=== PATIENT | female | born 1955 | race Asian ===

== ENCOUNTER 2017-07-16 11:57 | Emergency (ER) | payer OTHER ==
[2017-07-16 12:34] LABS: POC GLUCOSE 85 mg/dL (70-99)
[2017-07-16] MEDS: amLODIPine BESYLATE 5 MG TABLET PO (14:09)
[2017-07-16] MEDS: cloNIDine HCL 0.1 MG TABLET PO (15:25)
== END 2017-07-16 15:47 | disposition home or self-care (01) ==
LOC: ER 11:57
DX: S09.90XA Unspecified injury of head, initial encounter (principal); E78.00 Pure hypercholesterolemia, unspecified; E03.9 Hypothyroidism, unspecified; G89.29 Other chronic pain; I11.0 Hypertensive heart disease with heart failure; I50.9 Heart failure, unspecified; I25.10 Atherosclerotic heart disease of native coronary artery without angina pectoris; E11.9 Type 2 diabetes mellitus without complications; J44.9 Chronic obstructive pulmonary disease, unspecified; Z86.73 Personal history of transient ischemic attack (TIA), and cerebral infarction without residual deficits; W18.39XA Other fall on same level, initial encounter; Y93.89 Activity, other specified; Y99.8 Other external cause status; Y92.89 Other specified places as the place of occurrence of the external cause
CPT/HCPCS: 70450; 72125; 82962; 99284-25

== ENCOUNTER → 2017-10-13 | Outpatient (CLI) | payer OTHER ==
[~2017-10-13] MED LIST: LIDOCAINE 1% Multi-Dose 50 ML VIAL. INJ
== END | disposition home or self-care (01) ==
LOC: US 14:55
DX: E07.89 Other specified disorders of thyroid (principal); I11.0 Hypertensive heart disease with heart failure; I50.9 Heart failure, unspecified; E11.9 Type 2 diabetes mellitus without complications; E78.00 Pure hypercholesterolemia, unspecified; J44.9 Chronic obstructive pulmonary disease, unspecified; E03.9 Hypothyroidism, unspecified; I25.10 Atherosclerotic heart disease of native coronary artery without angina pectoris
CPT/HCPCS: 76942; 88173; 88305

== ENCOUNTER 2018-04-10 12:08 | Emergency (ER) | payer MEDICAID, OTHER ==
[~2018-04-10] VITALS: Ht 152.4 cm; Wt 63.5 kg
[2018-04-10 12:08] VITALS: BP 207/87
[~2018-04-10 12:08] MED LIST changes: +ACET325T9 PO; -LIDOCAINE 1% Multi-Dose 50 ML VIAL. INJ
--- NOTE | 2018-04-10 13:18 | RAD ---
CT head without contrast and CT cervical spine without contrast dated 04/10/2018. There is a made to 07/16/2017. Clinical data indication: Head and neck pain after fall. TECHNIQUE: Per contiguous axial imaging the head performed from skull base to vertex. In addition, axial imaging the cervical spine acquired with thin cut coronal and sagittal reconstruction. One or more of the following individualized dose reduction techniques were utilized for this examination: 1. Automated exposure control 2. Adjustment of the mA and/or kV according to patient size 3. Use of iterative reconstruction technique FINDINGS: Ventricles and sulci are mildly prominent for age. No midline shift or mass effect. Zone of encephalization the right parietal-occipital region is unchanged consistent with remote infarct. There is mild to moderate patchy low density in the deep/subcortical periventricular white matter and central pollo, also similar to prior study. Small remote lacunar infarct of the left capps radiata. No hemorrhage or extra axial collection. Cerebellar volume loss, unchanged. Visualized paranasal sinuses and mastoid air cells are clear. No apparent calvarial abnormality. Images of the cervical spine were acquired from skull base to T2. Straightening of the normal cervical lordosis, otherwise sagittal alignment is anatomic. Vertebral body heights are maintained. No prevertebral soft tissue swelling. Posterior elements are intact. No evidence of fracture. Mild endplate hypertrophic changes throughout with multilevel uncovertebral spurring. There is moderate disc space narrowing at C3-C4 with multilevel mild facet arthropathy. There is resultant mild to moderate right foraminal stenosis at C3-C4 and C4-C5 Visualized soft tissue structures unremarkable. There is a calcified mass at the right thyroid gland, unchanged. Limited images of the lung apices are clear. IMPRESSION HEAD: 1. No evidence of acute intracranial hemorrhage or mass. 2. Moderate chronic small vessel ischemic changes and atrophy. There are remote infarcts of the right parietal occipital region and left capps radiata, unchanged. IMPRESSION CERVICAL SPINE: 1. No evidence of fracture or malalignment. 2. Mild multilevel spondylosis. 3. Indeterminate calcified mass at the right thyroid lobe, unchanged from prior exam. Electronically signed by: Finn Rosa MD (04/10/2018 1:14 PM) [facility] – [place]
--- NOTE | 2018-04-10 13:33 | PHYS DOC ---
Past Medical History Past Medical History: CAD, CHF, Constipation, COPD, CVA, Diabetes-Type II, High Cholesterol, Hypertension, Hypothyroid Additional Past Medical Histor: APHASIA, GASTRIC ULCERS,DERMATITIS,CHRONIC PAIN ,VITAMIN DEF, Past Surgical History: Coronary Bypass Surgery Alcohol Use: None Drug Use: None Adult General Chief Complaint Chief Complaint: MECHANICAL FALL HPI HPI Patient is a 62-year-old female who presents from group home with report of fall and hitting her head. Patient reportedly had no loss of consciousness. Patient has history of CVA and so has some aphasia. Additional history is limited due to patient's aphasia though she does not appear to be in any discomfort. Review of Systems Review of Systems Constitutional: Denies fever or chills [] Respiratory: Denies cough or shortness of breath [] Cardiovascular: No additional information not addressed in HPI [] GI: Denies vomiting or diarrhea [] Neurologic: Denies L status changes [] Unable to fully assess review of systems due to patient having expressive aphasia. Allergies Allergies Allergies Coded Allergies Type Severity Reaction Last Updated Verified No Known Drug Allergies 07/16/17 No Physical Exam Physical Exam Constitutional: Well developed, well nourished, no acute distress, non-toxic appearance. [] HENT: Normocephalic, atraumatic, bilateral external ears normal, oropharynx moist, no oral exudates, nose normal. [] Eyes: PERRLA, EOMI, conjunctiva normal, no discharge. [] Neck: Normal range of motion, no tenderness, supple, no stridor. [] Cardiovascular: Regular rate and rhythm [] Lungs & Thorax: Bilateral breath sounds clear to auscultation [] Abdomen: Bowel sounds normal, soft, no tenderness. [] Skin: Warm, dry, no erythema, no rash. [] Back: No spinous point tenderness. [] Extremities: No tenderness, no cyanosis, no clubbing. [] Neurologic: Awake and alert. Unable to fully assess neurological status due to prior stroke and expressive aphasia. [] Current Patient Data Vital Signs Vital Signs Date Time Temp Pulse Resp B/P (MAP) Pulse Ox O2 Delivery O2 Flow Rate FiO2 04/10/18 12:08 97.6 74 12 207/87 (127) 98 Room Air 97.6 EKG EKG [] Radiology/Procedures Radiology/Procedures [] Impressions: PROCEDURE: CT HEAD AND CERVICAL SPINE WO CT head without contrast and CT cervical spine without contrast dated 04/10/2018. There is a made to 07/16/2017. Clinical data indication: Head and neck pain after fall. TECHNIQUE: Per contiguous axial imaging the head performed from skull base to vertex. In addition, axial imaging the cervical spine acquired with thin cut coronal and sagittal reconstruction. One or more of the following individualized dose reduction techniques were utilized for this examination: 1. Automated exposure control 2. Adjustment of the mA and/or kV according to patient size 3. Use of iterative reconstruction technique FINDINGS: Ventricles and sulci are mildly prominent for age. No midline shift or mass effect. Zone of encephalization the right parietal-occipital region is unchanged consistent with remote infarct. There is mild to moderate patchy low density in the deep/subcortical periventricular white matter and central pollo, also similar to prior study. Small remote lacunar infarct of the left capps radiata. No hemorrhage or extra axial collection. Cerebellar volume loss, unchanged. Visualized paranasal sinuses and mastoid air cells are clear. No apparent calvarial abnormality. Images of the cervical spine were acquired from skull base to T2. Straightening of the normal cervical lordosis, otherwise sagittal alignment is anatomic. Vertebral body heights are maintained. No prevertebral soft tissue swelling. Posterior elements are intact. No evidence of fracture. Mild endplate hypertrophic changes throughout with multilevel uncovertebral spurring. There is moderate disc space narrowing at C3-C4 with multilevel mild facet arthropathy. There is resultant mild to moderate right foraminal stenosis at C3-C4 and C4-C5 Visualized soft tissue structures unremarkable. There is a calcified mass at the right thyroid gland, unchanged. Limited images of the lung apices are clear. IMPRESSION HEAD: 1. No evidence of acute intracranial hemorrhage or mass. 2. Moderate chronic small vessel ischemic changes and atrophy. There are remote infarcts of the right parietal occipital region and left capps radiata, unchanged. IMPRESSION CERVICAL SPINE: 1. No evidence of fracture or malalignment. 2. Mild multilevel spondylosis. 3. Indeterminate calcified mass at the right thyroid lobe, unchanged from prior exam. Electronically signed by: Finn Rosa MD (04/10/2018 1:14 PM) [facility] [place] DICTATED and SIGNED BY: FINN ROSA MD DATE: 04/10/18 1310 Course & Med Decision Making Course & Med Decision Making Pertinent Labs and Imaging studies reviewed. (See chart for details) [] Dragon Disclaimer Dragon Disclaimer This electronic medical record was generated, in whole or in part, using a voice recognition dictation system. Departure Departure Impression: Primary Impression: Closed head injury Additional Impression: Fall Disposition: 01 HOME, SELF-CARE Condition: STABLE Referrals: ANDREW DOLAN MD (PCP) Patient Instructions: Head Injury, Adult Problem Qualifiers Primary Impression: Closed head injury Encounter type: initial encounter Qualified Codes: S09.90XA - Unspecified injury of head, initial encounter Additional Impression: Fall Encounter type: initial encounter Qualified Codes: W19.XXXA - Unspecified fall, initial encounter AL ALBARADO Jr. DO Apr 10, 2018 13:33
== END 2018-04-10 15:53 | disposition home or self-care (01) ==
LOC: ER 12:08
DX: S09.90XA Unspecified injury of head, initial encounter (principal); M47.812 Spondylosis without myelopathy or radiculopathy, cervical region; J44.9 Chronic obstructive pulmonary disease, unspecified; I11.0 Hypertensive heart disease with heart failure; E78.00 Pure hypercholesterolemia, unspecified; I50.9 Heart failure, unspecified; E03.9 Hypothyroidism, unspecified; G89.29 Other chronic pain; Z86.73 Personal history of transient ischemic attack (TIA), and cerebral infarction without residual deficits; I25.10 Atherosclerotic heart disease of native coronary artery without angina pectoris; Z95.1 Presence of aortocoronary bypass graft; W18.09XA Striking against other object with subsequent fall, initial encounter; Y93.89 Activity, other specified; Y92.89 Other specified places as the place of occurrence of the external cause; Y99.8 Other external cause status
CPT/HCPCS: 70450; 72125; 99284-25

== ENCOUNTER 2019-08-19 18:31 | Emergency (ER) | payer MEDICAID, OTHER ==
[~2019-08-19] VITALS: Ht 149.9 cm; Wt 88.6 kg
--- NOTE | 2019-08-19 19:36 | RAD ---
CT HEAD AND CERVICAL SPINE WO Date: 08/19/2019 6:45 PM Clinical Indication: Reason: TRAUMA, pain Comparison: CT head 04/10/2018. Technique: 5 mm axial tomographic images were obtained of the head without contrast. These were viewed on brain and bone windows. Noncontrast CT of the cervical spine was performed. Sagittal and coronal reformats were performed and evaluated. One or more of the following dose reduction techniques were utilized: Automated exposure control (AEC), Adjustment of mA and/or kV according to patient size, Use of iterative reconstruction technique such as ASiR, CT scan done according to ALARA and image gently/image wisely HEAD FINDINGS: Mild generalized cerebral and cerebellar volume loss. Moderate nonspecific periventricular hypoattenuation, most commonly seen with chronic small vessel ischemic disease. Moderate area of right parieto-occipital encephalomalacia. Chronic left capps radiata lacunar infarct. No intra- or extra-axial mass or fluid collection. No acute hemorrhage. The ventricles are normal in size, shape, and morphology. The nelson-white matter junction is normal. The basilar cisterns are patent. The visualized paranasal sinuses are normal. The visualized portions of the orbits and globes are normal. The mastoid air cells are clear. No aggressive osseous lesion or fracture. CERVICAL SPINE FINDINGS: The cervical spine is normally aligned. No acute fracture. No aggressive lytic or blastic osseous lesions. Mild multilevel degenerative disc space height loss. Multilevel mild spinal canal stenosis secondary to disc protrusions and marginal osteophytes. Multilevel mild and moderate neuroforaminal narrowing secondary to uncovertebral arthrosis. Multilevel mild and moderate facet arthrosis. Large right thyroid nodule, better evaluated on prior thyroid ultrasound. No cervical lymphadenopathy. Bilateral carotid atherosclerosis. The visualized aerodigestive tract is normal. The visualized portions of the lungs are clear. IMPRESSION: 1. No acute intracranial process. Left posterior scalp hematoma 2. No acute cervical spine fracture. Electronically signed by: Bennie Stevens MD (08/19/2019 7:33 PM) [facility]
[2019-08-19] MEDS ORDERED: cloNIDine HCL 0.1 MG TABLET PO ONE (20:00)
--- NOTE | 2019-08-19 21:06 | PHYS DOC ---
Past Medical History Past Medical History: CAD, CHF, Constipation, COPD, CVA, Diabetes-Type II, High Cholesterol, Hypertension, Hypothyroid Additional Past Medical Histor: APHASIA, GASTRIC ULCERS,DERMATITIS,CHRONIC PAIN,VITAMIN DEF, Past Surgical History: Coronary Bypass Surgery Smoking Status: Unknown if ever smoked Alcohol Use: None Drug Use: None General Adult EDM: Chief Complaint: MECHANICAL FALL HPI: HPI: Patient is a 64 year old female from [place] presenting to the ED with a chief complaint of a mechanical fall. Patient is fell and hit the back of her head. Patient is at this facility due to a previous CVA. Patient is nonverbal and smiles. Per staff patient is at her baseline. Patient has an injury to the back of her head. Review of Systems: Review of Systems: Constitutional: Denies fever or chills. [] Eyes: Denies change in visual acuity. [] HENT: Denies nasal congestion or sore throat. Patient has a head injury [] Respiratory: Denies cough or shortness of breath. [] Cardiovascular: Denies chest pain or edema. [] GI: Denies abdominal pain, nausea, vomiting, bloody stools or diarrhea. [] : Denies dysuria. [] Musculoskeletal: Denies back pain or joint pain. [] Integument: Denies rash. [] Neurologic: Denies headache, focal weakness or sensory changes. [] Heart Score: Risk Factors: Risk Factors: DM, Current or recent (<one month) smoker, HTN, HLP, family history of CAD, obesity. Risk Scores: Score 0 - 3: 2.5% MACE over next 6 weeks - Discharge Home Score 4 - 6: 20.3% MACE over next 6 weeks - Admit for Clinical Observation Score 7 - 10: 72.7% MACE over next 6 weeks - Early Invasive Strategies Current Medications: Current Medications Medications (Trade) Dose Ordered Sig/Violeta Start Time Stop Time Status Last Admin Dose Admin Clonidine HCl (Catapres) 0.2 mg 1X ONCE 08/19/19 20:00 08/19/19 20:01 DC 08/19/19 20:05 0.2 MG Allergies: Allergies: Allergies Coded Allergies Type Severity Reaction Last Updated Verified No Known Drug Allergies 07/16/17 No Physical Exam: PE: Constitutional: Well developed, well nourished, no acute distress, non-toxic appearance. [] HENT: Normocephalic, hematoma to the left occipital region Eyes: EOMI Neck: Normal range of motion, Supple Cardiovascular: Heart rate regular rhythm Lungs & Thorax: Bilateral breath sounds clear to auscultation [] Abdomen: Bowel sounds normal, soft, no tenderness Extremities: No tenderness, ROM intact Neurologic: Alert Current Patient Data: Vital Signs: Vital Signs Date Time Temp Pulse Resp B/P (MAP) Pulse Ox O2 Delivery O2 Flow Rate FiO2 08/19/19 20:55 66 133/60 (84) 97 Room Air 08/19/19 18:31 98.1 18 98.1 EKG: EKG: [] Radiology/Procedures: Radiology/Procedures: [] Impression: CT head and CT C-spine shows no acute intracranial process or fractures. Course & Med Decision Making: Course & Med Decision Making Pertinent Imaging studies reviewed. (See chart for details) CT of the head and C-spine showed no acute intracranial process or acute fractures. Patient blood pressure was elevated and the patient was given Catapres 0.2 mg oral tablet. Patient blood pressure is within normal limits currently and patient will be discharged. Discussed results and plan of care with patient. Patient is instructed to follow up with PCP in one to 2 days. Appropriate discharge instructions given to patient to return to the ED or to seek immediate medical evaluation. Patient is instructed to return to the ED if symptoms worsen or if any concerns. Dragon Disclaimer: Dragon Disclaimer: This electronic medical record was generated, in whole or in part, using a voice recognition dictation system. Departure Departure Impression: Primary Impression: Head injury Disposition: HOME, SELF-CARE Condition: STABLE Referrals: ANDREW DOLAN MD (PCP) Patient Instructions: Head Injury, Adult Additional Instructions: Please return to the ED if symptoms worsen or if any concerns. Please follow-up with PCP in 1 to 2 days. Justicifation of Admission Dx: Justifications for Admission: Justification of Admission Dx: AVERY Beckett DO Aug 19, 2019 21:06
[2019-08-19 21:16] VITALS: BP 135/65
== END 2019-08-19 22:23 | disposition home or self-care (01) ==
LOC: ER 18:31
DX: S00.03XA Contusion of scalp, initial encounter (principal); I11.0 Hypertensive heart disease with heart failure; I50.9 Heart failure, unspecified; J44.9 Chronic obstructive pulmonary disease, unspecified; E11.9 Type 2 diabetes mellitus without complications; E78.00 Pure hypercholesterolemia, unspecified; E03.9 Hypothyroidism, unspecified; G89.29 Other chronic pain; Z98.890 Other specified postprocedural states; W18.09XA Striking against other object with subsequent fall, initial encounter; Y93.89 Activity, other specified; Y92.89 Other specified places as the place of occurrence of the external cause; Y99.8 Other external cause status
CPT/HCPCS: 70450; 72125; 99285